=== PATIENT | female | born 1995 | race African-American/Black ===

== ENCOUNTER 2019-05-31 19:52 | Emergency (ER) | payer OTHER, SELFPAY ==
[2019-05-31 20:31] LABS: #Basophils 0.1 thou/uL (0.0-0.2); #Eosinphils 0.2 thou/uL (0.0-0.7); #Lymphocytes 2.8 thou/uL (1.20-3.40); #Monocytes 0.6 thou/uL (0.11-0.59); #Neutrophils 4.3 thou/uL (1.40-6.50); %Basophils 0.9 % (0.0-1.0); %Eosinophils 2.3 % (0.0-10.0); %Lymphocytes 35.2 % (21.0-51.0); %Monocytes 7.1 % (0.0-10.0); %Neutrophils 54.4 % (42.0-75.0); Hemoglobin 10.9 g/dL (12.0-16.0); Mean Corpuscular HGB CONC 32.6 g/dL (32.0-36.0); Mean Corpuscular Hemoglobin 24.7 pg (27.0-31.0); Mean Corpuscular Volume 75.8 fL (78.0-98.0); Mean Platelet Volume 6.5 fL (7.4-10.4); Platelet Count 480 thou/uL (130-400); RBC Distribution Width 14.4 % (11.5-14.5); White Blood Cell (WBC) Count 7.9 thou/uL (4.8-10.8)
--- NOTE | 2019-05-31 20:33 | RAD ---
PORTABLE CHEST: 05/31/19 HISTORY: Chest pain since this morning. Heart size appears borderline in size considering AP technique. Mediastinal structures are unremarkab le. The lungs are clear of infiltrates. IMPRESSION: Borderline heart size. POS: [facility]
[2019-05-31 20:51] LABS: ALT (SGPT) 18 U/L (8-55); AST (SGOT) 15 U/L (5-34); Albumin 4.9 g/dL (3.5-5.0); Alkaline Phosphatase 65 U/L (40-110); Anion Gap 13 mmol/L (10-20); BUN (Urea Nitrogen) 11 mg/dL (7.0-18.7); Bilirubin, Total 0.3 mg/dL (0.2-1.2); Calc. Creatinine Clearance 0 mL/min (70-130); Carbon Dioxide 27 mmol/L (22-29); Chloride 104 mmol/L (98-107); Estimated GFR-MDRD 83; Globulin 4.4 g/dL (2.4-3.5); Glucose 74 mg/dL (70-105); Potassium 3.7 mmol/L (3.5-5.1); Protein, Total 9.3 g/dL (6.0-8.3); Sodium 140 mmol/L (136-145)
[2019-05-31 21:06] LABS: BHCG - Serum Negative (NEGATIVE); Pregs Control Background? CLEAR/WHITE (CLR/WHITE); Pregs Control Bar Appear? YES (CONTROL BAR)
[2019-05-31] MEDS ORDERED: Ketorolac Tromethamine 30 MG/ML VIAL ONE (21:43)
--- NOTE | 2019-06-04 14:33 | EKG ---
Test Reason : CHEST PAIN Blood Pressure : / mmHG Vent. Rate : 086 BPM Atrial Rate : 086 BPM P-R Int : 158 ms QRS Dur : 070 ms QT Int : 336 ms P-R-T Axes : 027 034 004 degrees QTc Int : 402 ms Normal sinus rhythm Normal ECG Confirmed by LEROY FRANKLIN DO ([id number]), development editor KEVIN VANN ([id number] on 06/04/2019 2:33:15 PM Referred By: Confirmed By:LEROY FRANKLIN DO
== END 2019-05-31 21:57 | disposition home or self-care (01) ==
LOC: ERS 19:52
DX: R07.89 Other chest pain (principal); I10 Essential (primary) hypertension; F41.9 Anxiety disorder, unspecified; F32.9 Major depressive disorder, single episode, unspecified; F17.210 Nicotine dependence, cigarettes, uncomplicated
CPT/HCPCS: 71045; 80053; 84484; 84703; 85025; 93005; 96374; J1885

== ENCOUNTER 2019-08-11 09:56 | Inpatient (IN) | payer SELFPAY ==
[2019-08-11] MEDS ORDERED: Morphine 4 MG/ML VIAL ONE (10:20)
[2019-08-11 10:26] LABS: #Basophils 0.1 thou/uL (0.0-0.2); #Eosinphils 0.6 thou/uL (0.0-0.7); #Lymphocytes 2.4 thou/uL (1.20-3.40); #Monocytes 0.5 thou/uL (0.11-0.59); #Neutrophils 3.2 thou/uL (1.40-6.50); %Basophils 0.9 % (0.0-1.0); %Eosinophils 8.3 % (0.0-10.0); %Lymphocytes 35.5 % (21.0-51.0); %Monocytes 7.6 % (0.0-10.0); %Neutrophils 47.7 % (42.0-75.0); Hemoglobin 11.9 g/dL (12.0-16.0); Mean Corpuscular HGB CONC 33.4 g/dL (32.0-36.0); Mean Corpuscular Hemoglobin 25.6 pg (27.0-31.0); Mean Corpuscular Volume 76.7 fL (78.0-98.0); Mean Platelet Volume 6.8 fL (7.4-10.4); Platelet Count 429 thou/uL (130-400); RBC Distribution Width 15.2 % (11.5-14.5); Red Blood Cell (RBC) Count 4.65 mill/uL (4.20-5.40); White Blood Cell (WBC) Count 6.7 thou/uL (4.8-10.8)
[2019-08-11] MEDS ORDERED: Ondansetron PF 4 MG/2 ML Vial ONE (10:31)
[2019-08-11 10:36] LABS: BHCG - Serum Negative (NEGATIVE); Pregs Control Background? CLEAR/WHITE (CLR/WHITE); Pregs Control Bar Appear? YES (CONTROL BAR)
[2019-08-11 10:41] LABS: ALT (SGPT) 22 U/L (8-55); AST (SGOT) 19 U/L (5-34); Albumin 4.8 g/dL (3.5-5.0); Alkaline Phosphatase 56 U/L (40-110); Anion Gap 15 mmol/L (10-20); BUN (Urea Nitrogen) 11 mg/dL (7.0-18.7); Bilirubin, Total 0.4 mg/dL (0.2-1.2); Calc. Creatinine Clearance 0 mL/min (70-130); Calcium 10.1 mg/dL (7.8-10.44); Carbon Dioxide 21 mmol/L (22-29); Chloride 103 mmol/L (98-107); Estimated GFR-MDRD Greater than 90; Globulin 4.3 g/dL (2.4-3.5); Glucose 105 mg/dL (70-105); Lipase 12 U/L (8-78); Potassium 4.1 mmol/L (3.5-5.1); Protein, Total 9.1 g/dL (6.0-8.3); Sodium 135 mmol/L (136-145)
--- NOTE | 2019-08-11 11:23 | CT ---
CT Abdomen Pelvis W Con History: Abdominal pain Comparison: None. Findings: There is moderate soft tissue thickening along the skin surface at the level of the sternal incompletely evaluated although appears along the expected location of the bra line. Abnormal left lower lobe airspace consolidation. There is also abnormal right lower lobe airspace con solidation. There is cholelithiasis. The gallbladder wall is slightly thickened. No intrahepatic or extrahepatic dilatation. Mild increased size and number of ileocolic mesenteric lymph nodes. The appendix is felt to be visual ized and appears normal. Small volume free fluid the pelvis. No hydronephrosis. Spleen and pancreas are unremarkable as well as the adrenal glands. Chronic appearing anterior compression deformity at T11. No acute osseous abnormality. Impression: 1. Bibasilar pneumonia. 2. Subtle mid gallbladder wall thickening without significant distention. There is, however, cholelit hiasis. Recommend correlation with lab values for acute cholecystitis. No significant pericholecystic inflammation. 3. Trace free fluid in the pelvis likely physiologic. 4. Mild mesenteric adenitis. Normal appendix. 5. Mild superficial skin and subcutaneous fat thickening along the chest bra line bilaterally.
[2019-08-11 11:49] LABS: Bilirubin Negative (Negative); Blood, Urine Negative (Negative); Glucose, Urine (Dipstick) Negative (Negative); Leukocyte Small (Negative); Nitrite Negative (Negative); Protein, Urine (Dipstick) Trace mg/dL (Neg-Trace); Urobilinogen 0.2 mg/dL (Less than 2)
[2019-08-11 11:52] LABS: Clarity Clear (Clear)
[2019-08-11] MEDS ORDERED: cefTRIAXone\\ROCEPHIN 2 GM VIAL ONE (11:55)
--- NOTE | 2019-08-11 11:55 | RAD ---
PORTABLE CHEST: Date: 08/11/2019 HISTORY: Pneumonia. COMPARISON: 05/31/2019. Correlation made to CT which shows patchy bibasilar infiltrates. FINDINGS/IMPRESSION: The infiltrates seen on CT are not well seen on this portable chest exam. Heart size upper normal and there is mild vascular prominence. This should be followed with upright PA and lateral views of ches t. POS: [facility]
[2019-08-11 11:56] LABS: RBC/HPF 0-3 HPF (0-3)
[2019-08-11 11:57] LABS: Bacteria/HPF 1+ HPF (None Seen)
[2019-08-11] MEDS ORDERED: Azithromycin 500 MG VIAL ONE (12:53)
[2019-08-11] MEDS ORDERED: Bisacodyl 10 MG SUPP PR PRN (13:00)
[2019-08-11] MEDS ORDERED: Ondansetron PF 4 MG/2 ML Vial IVP PRN (13:00)
[2019-08-11] MEDS ORDERED: Senokot S 8.6-50 MG TAB PO PRN (13:00)
[2019-08-11] MEDS ORDERED: Azithromycin 500 MG in Sodium Chloride 0.9% 250 ML 250 ML IVPB SCH (13:00)
[2019-08-11] MEDS ORDERED: Acetaminophen 325 MG TAB PO PRN (13:00)
[2019-08-11] MEDS ORDERED: Iopamidol-370 76% 500 ML 1 ML ONE (13:16)
--- NOTE | 2019-08-11 13:18 | ULT ---
PELVIC ULTRAASOUND: Date: 08/11/2019 Transabdominal and endovaginal ultrasound of pelvis performed. HISTORY: Abdominal pain and pelvic pain. FINDINGS: Uterus appears unremarkable. Endometrial stripe measured at 9.0 mm. Right ovary is identified and is mildly prominent, measured at 5.8 x 4.0 x 3.7 cm. There are normal appearing follicles seen. Color Do ppler and spectral analysis demonstrates normal blood flow to the right ovary. The left ovary is not identified. Small amount of fluid in the cul-de-sac. IMPRESSION: 1. The left ovary is not identified. 2. Moderate cul-de-sac fluid. POS: [facility]
[2019-08-11] MEDS: Sodium Chloride 0.9% 1,000 ML IV SCH ×2 (14:09→23:00)
[2019-08-11] MEDS: Benzonatate 100 MG CAP PO SCH ×2 (15:25→21:28)
--- NOTE | 2019-08-11 16:02 | ULT ---
EXAM: Right upper quadrant ultrasound PROVIDED CLINICAL HISTORY: Right upper quadrant pain COMPARISON: None FINDINGS: Visualized portions of the pancreas appear normal. Liver demonstrates no mass or intrahepatic biliary ductal dilatation. Common duct is nondilated. Gallbladder demonstrates gallstones with gallbladder wall thickening measu ring about 9 mm. No pericholecystic fluid or sonographic Hand sign. Right kidney demonstrates no hydronephrosis or mass. IMPRESSION: Cholelithiasis with gallbladder wall thickening. Correlate for acute cholecystitis.
[2019-08-11 16:51] VITALS: BMI 44.9
--- NOTE | 2019-08-11 18:40 | HP ---
REASON FOR ADMISSION: Acute cholecystitis. HISTORY OF PRESENTING ILLNESS: The patient came to ER with complaints of abdominal pain in the right lateral umbilical area to the right side. She also vomited twice at home. She is having headache and had a temperature of 99.1 on arrival. The patient also mentions that she had some postnasal drainage and nasal stuffiness. No complaints of diarrhea. She got exposed to flu from her grandpa 2 weeks back. PAST MEDICAL AND SURGICAL HISTORY: 1. Hypertension during , not on any medication. 2. Obesity with BMI of 44. 3. x2. 4. Anxiety and depression, not on any medication. CURRENT MEDICATIONS: None. ALLERGIES: AUGMENTIN. PERSONAL HISTORY: Smokes half pack a day. Does not abuse alcohol or drugs. 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 FAMILY HISTORY: Both parents are living. Father is healthy. Mother has history of diabetes. Code status is full. REVIEW OF SYSTEMS: CONSTITUTIONAL: Negative for weight loss or gain, ability to conduct usual activities. SKIN: Negative for rash, itching. EYES: Negative for double vision, pain. ENT/MOUTH: Negative for nose bleeding, neck stiffness, pain, tenderness. CARDIOVASCULAR: Negative for palpitations, dyspnea on exertion, orthopnea. RESPIRATORY: Negative for shortness of breath, wheezing, cough, hemoptysis, fever or night sweats. GASTROINTESTINAL: Negative for poor appetite, abdominal pain, heartburn, nausea, vomiting, constipation, or diarrhea. GENITOURINARY: Negative for urgency, frequency, dysuria, nocturia. MUSCULOSKELETAL: Negative for pain, swelling. NEUROLOGIC/PSYCHIATRIC: Negative for anxiety, depression. ALLERGY/IMMUNOLOGIC: Negative for skin rash, bleeding tendency. PHYSICAL EXAMINATION: GENERAL: The patient is a 24-year-old female, who is currently in mild distress from abdominal pain and generalized weakness. VITAL SIGNS: Blood pressure 144/80, pulse 86 per minute, respiratory rate 18 per minute, temperature 99.1 degrees Fahrenheit, saturating 95% on room air. NECK: Supple. No elevated JVD. HEENT: Eyes; extraocular muscles intact. Pupils reacting to light. Oral cavity, mucous membranes are dry. No exudates or congestion. CARDIOVASCULAR: S1, S2 heard. Regular rhythm. RESPIRATORY: Air entry 1+ bilateral. No rales or rhonchi. ABDOMEN: Soft. There is mild tenderness in the right lower quadrant area. No rigidity or guarding. Bowel sounds are heard. EXTREMITIES: No peripheral edema or calf tenderness. VASCULAR: Peripheral pulses 1+ bilateral. No ischemic ulcerations or gangrene. CENTRAL NERVOUS SYSTEM: No gross focal deficits noted. The patient is alert, awake, and oriented well. PSYCHIATRIC: The patient's mood is euthymic. No hallucinations or delusions. LABORATORY DATA: White count of 6.7, H and H of 11.9 and 35, MCV is 76, platelet count 429 with 47% neutrophils, 35% lymphocytes. Electrolytes are stable. Serum bicarb 21, BUN 11, creatinine 0.8, total bilirubin 0.4, AST 19, ALT 22, alkaline phosphatase 56, albumin 4.8. Serum test is negative. Lipase is 12. UA shows small leukocyte esterase, 1+ bacteria, 7-10 WBCs. IMAGING DATA: 1. CT of the abdomen and pelvis with contrast done showed possible bibasilar pneumonia, likely atelectasis. Gallbladder wall thickening without significant distention. There is cholelithiasis. Trace free fluid in the pelvis likely physiologic. Mild mesenteric adenitis with normal appendix. 2. Right upper quadrant ultrasound done shows cholelithiasis with gallbladder wall thickening, correlate for acute cholecystitis. Gallbladder with wall thickening measuring around 9 mm. Common duct is not dilated. 3. Chest x-ray done, shows no obvious abnormalities seen. 4. Pelvic ultrasound done, shows left ovary not to be seen. Moderate cul-de-sac fluid. CLINICAL IMPRESSION AND PLAN: The patient will be admitted to medical floor for likely acute cholecystitis. She will be on normal saline at 100 mL per hour. We will keep her n.p.o. after midnight. She will be on Rocephin and Zithromax for now. Viral PCR will be obtained in view of prior exposure to flu 2 weeks back. She has postnasal drainage and will be placed on Mucinex and Tessalon Perles. She will also be on DuoNeb q.6 hourly. The patient has morbid obesity with BMI of 44. I have spoken to Dr. Caceres for General Surgery consultation. Likely the patient will have a cholecystectomy done in the morning once Dr. Caceres evaluates her. Blood cultures have been obtained in the ER and we will follow up on that. She is hemodynamically stable at present. There is no signs of choledocholithiasis or obstructive findings on liver enzymes. Job ID: [id number]
[2019-08-11] MEDS: Famotidine 20 MG TAB PO SCH (21:28)
[2019-08-11] MEDS: guaiFENesin ER 600 MG TAB PO SCH (21:28)
[2019-08-11] MEDS: Guaifenesin DM 100-10/5 ML UDCUP PO PRN (21:29)
[2019-08-12] MEDS: Guaifenesin DM 100-10/5 ML UDCUP PO PRN (01:26)
[2019-08-12 05:55] LABS: #Basophils 0.1 thou/uL (0.0-0.2); #Eosinphils 0.6 thou/uL (0.0-0.7); #Monocytes 0.6 thou/uL (0.11-0.59); #Neutrophils 2.8 thou/uL (1.40-6.50); %Lymphocytes 42.7 % (21.0-51.0); %Neutrophils 39.3 % (42.0-75.0); Hemoglobin 10.3 g/dL (12.0-16.0); Mean Corpuscular HGB CONC 32.7 g/dL (32.0-36.0); Mean Corpuscular Hemoglobin 25.5 pg (27.0-31.0); Mean Corpuscular Volume 77.9 fL (78.0-98.0); Mean Platelet Volume 7.2 fL (7.4-10.4); Platelet Count 343 thou/uL (130-400); RBC Distribution Width 15.3 % (11.5-14.5); Red Blood Cell (RBC) Count 4.04 mill/uL (4.20-5.40); White Blood Cell (WBC) Count 7.1 thou/uL (4.8-10.8)
[2019-08-12 06:12] LABS: ALT (SGPT) 16 U/L (8-55); AST (SGOT) 14 U/L (5-34); Albumin 3.8 g/dL (3.5-5.0); Alkaline Phosphatase 43 U/L (40-110); Anion Gap 14 mmol/L (10-20); BUN (Urea Nitrogen) 5 mg/dL (7.0-18.7); Bilirubin, Total 0.4 mg/dL (0.2-1.2); Calc. Creatinine Clearance 258 mL/min (70-130); Calcium 8.5 mg/dL (7.8-10.44); Carbon Dioxide 18 mmol/L (22-29); Chloride 106 mmol/L (98-107); Estimated GFR-MDRD Greater than 90; Globulin 3.2 g/dL (2.4-3.5); Glucose 82 mg/dL (70-105); Iron 30 ug/dL (50-170); Iron Binding Capacity, Total 266 mcg/dL (265-497); Potassium 3.6 mmol/L (3.5-5.1); Sodium 134 mmol/L (136-145)
[2019-08-12] MEDS: Famotidine 20 MG TAB PO SCH (08:56)
[2019-08-12] MEDS: Benzonatate 100 MG CAP PO SCH (08:56)
[2019-08-12] MEDS: guaiFENesin ER 600 MG TAB PO SCH (08:56)
[2019-08-12] MEDS ORDERED: Enoxaparin Sodium 40 MG/0.4 ML SYRINGE SC SCH (09:00)
[2019-08-12 11:26] VITALS: BP 116/76; TEMP 98.8
[2019-08-12] MEDS ORDERED: cefTRIAXone\\ROCEPHIN 1 GM in Sodium Chloride 0.9% 100 ML IVPB SCH (12:00)
--- NOTE | 2019-08-12 17:54 | DIS ---
DATE OF ADMISSION: 08/11/2019 DATE OF DISCHARGE: 08/12/2019 DISCHARGE DISPOSITION: Home. PRIMARY DISCHARGE DIAGNOSES: 1. Cholelithiasis with gallbladder wall thickening, but no pericholecystic fluid, with abdominal pain, nausea, and vomiting. 2. Urinary tract infection. 3. Upper respiratory infection, likely viral. SECONDARY DISCHARGE DIAGNOSIS: Obesity with body mass index of 44. PROCEDURES DONE DURING HOSPITALIZATION: Chest x-ray done showed no acute infiltrate. CT of the abdomen and pelvis with contrast done showed cholelithiasis with gallbladder wall thickening without significant distention. No pericholecystic inflammation was seen. Normal appendix. Respiratory viral pathogen PCR was positive for human metapneumovirus and rhinovirus. Right upper quadrant ultrasound done showed findings of cholelithiasis with gallbladder wall thickening. Gallbladder wall thickening measured about 9 mm. There was no pericholecystic fluid or sonographic Hand sign. Common duct was not dilated. There is no liver mass. Complete pelvic ultrasound showed moderate cul-de-sac fluid with left ovary not being identified. Right ovary was mildly prominent and had normal appearing follicles. There was normal blood flow to right ovary. Blood cultures x2, no growth. White count of 6.7, H and H of 11 and 35, MCV 76, platelet count of 429 with 47% neutrophils, 35% lymphocytes. Liver enzymes were within normal limits. Total bilirubin 0.4, albumin 3.8. Lipase was 12. Serum test negative. Serum iron 30, ferritin is 41, TIBC 266, percent saturation 11. UA showed small leukocyte esterase with 1+ bacteria and 7 to 10 wbc's. She has been afebrile at 98.2 degrees all through her stay here. DISCHARGE MEDICATIONS: 1. Levaquin 500 mg p.o. daily for 4 days for urinary tract infection and upper respiratory infection with possible sinusitis. 2. Mucinex 600 mg p.o. twice daily. 3. Ferrous sulfate 325 mg p.o. twice daily for iron-deficiency anemia. 4. Albuterol inhaler q.6 hourly p.r.n. for URI. ALLERGIES: AMOXICILLIN AND CLAVULANIC ACID. DISCHARGE PLAN: The patient to find and follow up with a primary care physician in 1 week. If the patient decides to have her cholecystectomy done, she can call Dr. Caceres's office for the same for an appointment. BRIEF COURSE DURING HOSPITALIZATION: The patient initially came to ER with complaints of abdominal pain in the umbilical area on the right side, more to the lower quadrant area. She also vomited twice at home. On arrival, had a temperature of 99.1 degrees Fahrenheit. She had exposure to flu-like illness from her grandfather 2 weeks back. The patient had postnasal drainage and nasal stuffiness as well on arrival. In view of these symptoms, the patient was admitted to medical floor. CT of the abdomen and pelvis done in the ER showed cholelithiasis with gallbladder wall thickening. She also had a right upper quadrant ultrasound done, which confirmed the same, but no evidence of acute cholecystitis with pericholecystic fluid. Her chest x-ray did not reveal any infiltrate. The patient's viral PCR came back positive for human metapneumovirus and rhinovirus. She has remained hemodynamically stable with her temperatures being normal all through her stay here. She has been ambulating in the room. She was saturating 97% on room air with normal vital signs. The patient was advised to have laparoscopic cholecystectomy and a consultation for Dr. Caceres was placed. The patient was kept n.p.o. after midnight, but she refused to have a surgeon seeing her for procedure. In view of the patient being totally asymptomatic this morning, ambulating, and eating well, she will be shortly discharged home. She needs to continue Levaquin for urinary tract infection and possible secondary bacterial infection with initial viral upper respiratory infection. She was also given prescriptions for ferrous sulfate for iron deficiency anemia. Please note, I have seen and examined the patient twice prior to discharge. Job ID: [id number]
== END 2019-08-12 11:54 | disposition home or self-care (01) | DRG 445 ==
LOC: ERS 09:56 → T4-A 13:45
PROVIDERS: ADMIT Internal Medicine; ATTEND Internal Medicine
DX: K80.20 Calculus of gallbladder without cholecystitis without obstruction (principal); Z68.41 Body mass index [BMI] 40.0-44.9, adult; N39.0 Urinary tract infection, site not specified; I10 Essential (primary) hypertension; F41.9 Anxiety disorder, unspecified; F32.9 Major depressive disorder, single episode, unspecified; E66.9 Obesity, unspecified; F17.210 Nicotine dependence, cigarettes, uncomplicated; J06.9 Acute upper respiratory infection, unspecified; D50.9 Iron deficiency anemia, unspecified; B97.89 Other viral agents as the cause of diseases classified elsewhere; Z88.1 Allergy status to other antibiotic agents; Z88.8 Allergy status to other drugs, medicaments and biological substances
CPT/HCPCS: 36415; 71045; 74177; 76705; 76856; 80053; 81003; 81015; 82728; 83540; 83550; 83605; 83690; 84703; 85025; 87040; 87633; 94640; 96361; 96365; 96367; 96375; J0456; J0696; J2270; J2405; J7620; Q9967